=== PATIENT | female | born 1950 | race American Indian/Alaskan Native ===

== ENCOUNTER 2017-04-23 08:15 | Emergency (ER) | payer MEDICARE ==
[2017-04-23 08:30] VITALS: BMI 20.8
[2017-04-23 08:32] VITALS: BP 124/78; PULSE 80; RESP 18; TEMP 98.4; O2SAT 100
[2017-04-23] MEDS ORDERED: TDAP Vaccine 0.5 mL Syr IM ONE (08:38)
--- NOTE | 2017-04-23 08:59 | ED PDOC ---
Arrival/HPI - General Chief Complaint: Abnormal Skin Integrity Time Seen by Provider: 04/23/17 08:38 Historian: Patient - History of Present Illness Narrative History of Present Illness (Text): 04/23/17 08:35 A 66 year old female, whose past medical history includes acute myocardial infarction, ventricular fibrillation, and URI, presents to the emergency department after an accident while preparing her thanksgiving turkey prior to arrival. The patient states she was cutting her turkey when the knife slipped and punctured her in her left forearm. The patient states it immediately puffed up and she applied pressure to the area to stop the bleeding. She admits her last tetanus shot was over 20 years ago. PMD: Dr. Min Time/Duration: Prior to Arrival Symptom Onset: Sudden Symptom Course: Improving Activities at Onset: Light Context: Home Past Medical History - Provider Review Nursing Documentation Reviewed: Yes - Infectious Disease Hx of Infectious Diseases: None - Tetanus Immunization Tetanus Immunization: Unknown - Reproductive Menopause: Yes - Past Medical History Past Medical History: No Previous - Cardiac Hx Cardiac Disorders: Yes Hx Pacemaker: No - Pulmonary Hx Respiratory Disorders: Yes Hx Bronchitis: Yes - Neurological Hx Paralysis: No - HEENT Hx HEENT Disorder: No - Renal Hx Renal Disorder: No (URINARY RETENTION POST CARD CATH WITH BLOODY URINES) - Endocrine/Metabolic Hx Endocrine Disorders: No - Hematological/Oncological Hx Blood Transfusions: No Hx Blood Transfusion Reaction: No - Integumentary Hx Dermatological Disorder: No - Musculoskeletal/Rheumatological Hx Musculoskeletal Disorders: Yes - Gastrointestinal Hx Gastrointestinal Disorders: Yes (CONSTIPATION) Hx Gastroesophageal Reflux: Yes - Genitourinary/Gynecological Hx Genitourinary Disorders: Yes (CYST REMOVED IN HER OVARY,MOLE REMOVED BREAST AREA) Hx Hematuria: Yes - Psychiatric Hx Emotional Abuse: No Hx Physical Abuse: No Hx Substance Use: No - Surgical History Hx Coronary Stent: Yes (x2) Other/Comment: cyst removal from right breast - Anesthesia Hx Anesthesia: Yes Hx Anesthesia Reactions: No Hx Malignant Hyperthermia: No - Suicidal Assessment Feels Threatened In Home Enviroment: No Family/Social History - Physician Review Nursing Documentation Reviewed: Yes Family/Social History: No Known Family HX Smoking Status: Never Smoked Hx Alcohol Use: No Hx Substance Use: No Hx Substance Use Treatment: No Allergies/Home Meds Allergies/Adverse Reactions: Allergies shellfish derived Allergy (Severe, Verified 04/23/17 08:46) ANAPHYLAXIS SEAFOOD Allergy (Severe, Uncoded 04/23/17 08:46) ANAPHYLAXIS PT STATES SHE CAN ONLY EAT TUNA Home Medications: Home Meds Medication Instructions Recorded Confirmed Aspirin [Aspirin EC] 81 mg PO QOTHERDAY 02/22/15 04/23/17 Atorvastatin Calcium [Lipitor] 40 mg PO DAILY 02/26/15 04/23/17 Linaclotide [Linzess] 145 mcg PO DAILY 05/23/15 04/23/17 Alprazolam [Xanax] 0.25 mg PO PRN PRN 12/21/15 04/23/17 Multivitamin/Iron/Folic Acid 1 tab PO DAILY 12/21/15 04/23/17 [Centrum] Review of Systems - Physician Review All systems were reviewed & negative as marked: Yes - Review of Systems Constitutional: absent: Fevers Skin: Laceration (stab wound due to cooking knife in left forearm) Neurological: absent: Dizziness Physical Exam Vital Signs Reviewed: Yes Vital Signs Temp Pulse Resp BP Pulse Ox 04/23/17 08:31 98.4 F 80 18 124/78 100 Temperature: Afebrile Blood Pressure: Normal Pulse: Regular Respiratory Rate: Normal Appearance: Positive for: Well-Appearing, Non-Toxic, Comfortable Pain Distress: None Mental Status: Positive for: Alert and Oriented X 3 - Systems Exam Head: Present: Atraumatic, Normocephalic Pupils: Present: PERRL Extroacular Muscles: Present: EOMI Conjunctiva: Present: Normal Mouth: Present: Moist Mucous Membranes Neck: Present: Normal Range of Motion Respiratory/Chest: Present: Clear to Auscultation, Good Air Exchange. No: Respiratory Distress, Accessory Muscle Use Cardiovascular: Present: Regular Rate and Rhythm, Normal S1, S2. No: Murmurs Abdomen: Present: Normal Bowel Sounds. No: Tenderness, Distention, Peritoneal Signs Back: Present: Normal Inspection Upper Extremity: Present: Normal Inspection. No: Cyanosis, Edema Lower Extremity: Present: Normal Inspection. No: Edema Neurological: Present: GCS=15, CN II-XII Intact, Speech Normal Skin: Present: Warm, Dry, Normal Color, Laceration (4 mm laceration to the left forearm; mild swelling; non tender; no erythema; no visual foreign body visualized; laceration is already healing and there is no indication for stitches). No: Rashes Psychiatric: Present: Alert, Oriented x 3, Normal Insight, Normal Concentration Medical Decision Making ED Course and Treatment: 04/23/17 08:40 Impression: A 67 year old female with laceration wound to left forearm Differential Diagnosis included but are not limited to: Puncture wound/ laceration Plan: -- Boostrix Vaccine -- Area was cleaned and irrigated by ERIN Matthews. Wound was already healing and approximation already ensued with healing. Great approximation achieved with 2 steri-strips. Patient will follow up with primary care doctor in 2-3days. I explained to her and her son to look out for redness, warmth, swelling, pus drainiage, fever or any other concerns then to return to the ED. - Medication Orders Current Medication Orders: Discontinued Medications Tetanus/Reduced Diphtheria/Acell Pertussis (Boostrix Vaccine Inj) 0.5 ml IM .ONCE ONE Stop: 04/23/17 08:39 Last Admin: 04/23/17 08:56 Dose: 0.5 ml - Scribe Statement Raquel Morelos Provider Scribe Attestation: All medical record entries made by the Scribe were at my direction and personally dictated by me. I have reviewed the chart and agree that the record accurately reflects my personal performance of the history, physical exam, medical decision making, and the department course for this patient. I have also personally directed, reviewed, and agree with the discharge instructions and disposition. Disposition/Present on Arrival - Present on Arrival Any Indicators Present on Arrival: No History of DVT/PE: No History of Uncontrolled Diabetes: No Urinary Catheter: No History of Decub. Ulcer: No History Surgical Site Infection Following: None - Disposition Have Diagnosis and Disposition been Completed?: Yes Diagnosis: Laceration, Puncture wound Disposition: HOME/ ROUTINE Disposition Time: 09:04 Patient Plan: Discharge Condition: IMPROVED Discharge Instructions (ExitCare): Laceration (ED), Puncture Wound (ED) Additional Instructions: Ms Sanchez, thank you for letting us take care of you today. Your provider was Dr. Mac. You were treated for Laceration, Puncture Wound. The emergency medical care you received today was directed at your acute symptoms. If you were prescribed any medication, please fill it and take as directed. It may take several days for your symptoms to resolve. Return to the Emergency Department if your symptoms worsen, do not improve, or if you have any other problems. Please contact your doctor or call one of the physicians/clinics you have been referred to that are listed on the Patient Visit Information form that is included in your discharge packet. Bring any paperwork you were given at discharge with you along with any medications you are taking to your follow up visit. Our treatment cannot replace ongoing medical care by a primary care provider (PCP) outside of the emergency department. Thank you for allowing the [facility] team to be part of your care today. If you had an X-Ray or CT scan: A Radiologist will review the ED reading if any change in treatment is needed we will contact you. If you had a blood, urine, or wound culture: It will take several days for the results, if any change in treatment is needed we will contact you. If you had an STI test: It will take 48 hours for the results. Please call after 1 week if you have not heard back. Referrals: Dion Min, DO [Primary Care Provider] - Follow up with primary Forms: [employer] ([place])
== END 2017-04-23 09:04 | disposition home or self-care (01) ==
LOC: ED 08:15
DX: S51.802A Unspecified open wound of left forearm, initial encounter (principal); S51.832A Puncture wound without foreign body of left forearm, initial encounter; W26.0XXA Contact with knife, initial encounter; Y93.G1 Activity, food preparation and clean up; I25.2 Old myocardial infarction; Z23 Encounter for immunization

== ENCOUNTER 2017-08-08 14:39 | Emergency (ER) | payer MEDICARE ==
[2017-08-08 14:39] VITALS: BMI 20.8
[2017-08-08 14:55] VITALS: RESP 18; TEMP 98.4
--- NOTE | 2017-08-08 15:27 | ED PDOC ---
Arrival/HPI - General Chief Complaint: Cough, Cold, Congestion Time Seen by Provider: 08/08/17 14:43 Historian: Patient - History of Present Illness Narrative History of Present Illness (Text): 08/08/17 15:23 65 year old female, Jayla Sanchez, whose past medical history includes hypertension, Bronchitis, DVT, MS, ME, and Cardiac Stent x2, presents to the emergency department complaining of cough, nasal congestion, chills x 1 week. Patient denies cp, abdominal pain, lara, dizziness, urinary symptoms, recent travel, leg swelling, calf pain, recent surgical procedure, or abnormal gait. Time/Duration: Other (see hpi) Context: Home Past Medical History - Provider Review Nursing Documentation Reviewed: Yes - Infectious Disease Hx of Infectious Diseases: None - Tetanus Immunization Tetanus Immunization: Unknown - Reproductive Menopause: Yes - Past Medical History Past Medical History: No Previous - Cardiac Hx ME: Yes - Pulmonary Hx Respiratory Disorders: Yes Hx Bronchitis: Yes - Neurological Hx Paralysis: No - HEENT Hx HEENT Disorder: No - Renal Hx Renal Disorder: No (URINARY RETENTION POST CARD CATH WITH BLOODY URINES) - Endocrine/Metabolic Hx Endocrine Disorders: No - Hematological/Oncological Hx Blood Transfusions: No Hx Blood Transfusion Reaction: No Other/Comment: MS - Integumentary Hx Dermatological Disorder: No - Musculoskeletal/Rheumatological Hx Musculoskeletal Disorders: Yes - Gastrointestinal Hx Gastrointestinal Disorders: Yes (CONSTIPATION) Hx Gastroesophageal Reflux: Yes - Genitourinary/Gynecological Hx Genitourinary Disorders: Yes (CYST REMOVED IN HER OVARY,MOLE REMOVED BREAST AREA) Hx Hematuria: Yes - Psychiatric Hx Emotional Abuse: No Hx Physical Abuse: No Hx Substance Use: No - Surgical History Hx Coronary Stent: Yes (x2) Other/Comment: cyst removal from right breast. Right foot Sx - Anesthesia Hx Anesthesia: Yes Hx Anesthesia Reactions: No Hx Malignant Hyperthermia: No - Suicidal Assessment Feels Threatened In Home Enviroment: No Family/Social History - Physician Review Nursing Documentation Reviewed: Yes Family/Social History: Other (noncontributory) Smoking Status: Never Smoked Hx Alcohol Use: No Hx Substance Use: No Hx Substance Use Treatment: No Allergies/Home Meds Allergies/Adverse Reactions: Allergies shellfish derived Allergy (Severe, Verified 08/08/17 14:55) ANAPHYLAXIS SEAFOOD Allergy (Severe, Uncoded 08/08/17 14:55) ANAPHYLAXIS PT STATES SHE CAN ONLY EAT TUNA Home Medications: Home Meds Medication Instructions Recorded Confirmed Aspirin [Aspirin EC] 81 mg PO QOTHERDAY 02/22/15 08/08/17 Atorvastatin Calcium [Lipitor] 40 mg PO DAILY 02/26/15 08/08/17 Linaclotide [Linzess] 145 mcg PO DAILY 05/23/15 08/08/17 Alprazolam [Xanax] 0.25 mg PO PRN PRN 12/21/15 08/08/17 Multivitamin/Iron/Folic Acid 1 tab PO DAILY 12/21/15 08/08/17 [Centrum] Esomeprazole Magnesium [Nexium] 40 mg PO DAILY 08/08/17 08/08/17 Review of Systems - Review of Systems Constitutional: Normal. absent: Fatigue, Weight Change, Fevers, Night Sweats Eyes: Normal ENT: Normal Respiratory: Cough. absent: SOB, Sputum, Wheezing Cardiovascular: Normal. absent: Chest Pain, Palpitations, Edema, Calf Pain, KIM , Orthopnea, Syncope Gastrointestinal: Normal. absent: Abdominal Pain, Nausea, Vomiting Genitourinary Female: Normal. absent: Dysuria, Frequency, Hematuria Musculoskeletal: Normal. absent: Neck Pain Skin: Normal. absent: Rash Neurological: Normal. absent: Headache, Dizziness, Focal Weakness, Gait Changes , Speech Changes, Facial Droop, Disequilibrium, Seizure Endocrine: Normal Hemo/Lymphatic: Normal Psychiatric: Normal Physical Exam Vital Signs Temp Pulse Resp BP Pulse Ox 08/08/17 14:51 98.4 F 77 18 107/74 98 Temperature: Afebrile Blood Pressure: Normal Pulse: Regular Respiratory Rate: Normal Appearance: Positive for: Well-Appearing, Non-Toxic, Comfortable Pain Distress: None Mental Status: Positive for: Alert and Oriented X 3 - Systems Exam Head: Present: Atraumatic, Normocephalic Pupils: Present: PERRL Extroacular Muscles: Present: EOMI Conjunctiva: Present: Normal Mouth: Present: Moist Mucous Membranes Neck: Present: Normal Range of Motion Respiratory/Chest: Present: Clear to Auscultation, Good Air Exchange. No: Respiratory Distress, Accessory Muscle Use, Wheezes, Decreased Breath Sounds, Rales, Retracting, Rhonchi Cardiovascular: Present: Regular Rate and Rhythm, Normal S1, S2. No: Murmurs Abdomen: Present: Normal Bowel Sounds. No: Tenderness, Distention, Peritoneal Signs Back: Present: Normal Inspection. No: CVA Tenderness Upper Extremity: Present: Normal Inspection, Normal ROM. No: Cyanosis, Edema Lower Extremity: Present: Normal Inspection, Normal ROM. No: Edema Neurological: Present: GCS=15, CN II-XII Intact, Speech Normal Skin: Present: Warm, Dry, Normal Color. No: Rashes Psychiatric: Present: Alert, Oriented x 3, Normal Insight, Normal Concentration Medical Decision Making ED Course and Treatment: 08/08/17 17:01 Re-evaluation. Patient feels better. Discussed results and plan with patient who expresses understanding. All questions answered and there is agreement with the plan to discharge home with instructions. Patient stable for discharge. Return if symptoms persist or worsen. Re-evaluation Time: 17:01 Reassessment Condition: Re-examined, Improved - RAD Interpretation Narrative RAD Interpretations (Text): 08/08/17 17:01 CXR: NAD Radiology Orders: 08/08/17 15:22 CHEST TWO VIEWS (PA/LAT) [RAD] Stat - EKG Interpretation Interpreted by ED Physician: Yes (NSR @ [address] changes) Type: 12 lead EKG Comparison: Similar to previous EKG - Medication Orders Current Medication Orders: Discontinued Medications Levofloxacin (Levaquin) 500 mg PO STAT STA PRN Reason: Protocol Stop: 08/08/17 16:43 Promethazine HCl (Phenergan Syrup) 6.25 mg PO STAT STA Stop: 08/08/17 16:44 Disposition/Present on Arrival - Present on Arrival Any Indicators Present on Arrival: No History of DVT/PE: No History of Uncontrolled Diabetes: No Urinary Catheter: No History of Decub. Ulcer: No History Surgical Site Infection Following: None - Disposition Have Diagnosis and Disposition been Completed?: Yes Diagnosis: Bronchitis Disposition: HOME/ ROUTINE Disposition Time: 17:02 Patient Plan: Discharge Patient Problems: Current Active Problems Problem Status Onset Bronchitis Acute Condition: GOOD Discharge Instructions (ExitCare): Acute Bronchitis Additional Instructions: Call private doctor for follow up visit in 1-2 days. Take medication as instructed. Return to emergency if symptoms worsen, chest pain, or shortness of breath Do not drive or operate machinery for at least 10 hours if you take cough medication. It could make you feel drowsy. Prescriptions: Levofloxacin [Levaquin] 500 mg PO DAILY #6 tablet Promethazine [Phenergan Syrup] 6.25 mg PO Q4H PRN #120 ml PRN Reason: Cough And Congestion Referrals: Dion Min DO [Primary Care Provider] - Follow up with primary Forms: [employer] ([place])
--- NOTE | 2017-08-08 15:49 | RAD ---
HISTORY: cough COMPARISON: 10/07/2016 TECHNIQUE: Chest PA and lateral FINDINGS: LUNGS: No active pulmonary disease. PLEURA: No significant pleural effusion identified. No pneumothorax apparent. CARDIOVASCULAR: Normal. OSSEOUS STRUCTURES: No significant abnormalities. Stable thoracolumbar scoliosis VISUALIZED UPPER ABDOMEN: Normal. OTHER FINDINGS: None. IMPRESSION: No active disease. No significant interval change compared to the prior examination(s). Concordant results with the preliminary interpretation rendered by the emergency department physician procedure.
[2017-08-08] MEDS ORDERED: levoFLOXacin 500 MG TAB PO STA (16:42)
[2017-08-08] MEDS ORDERED: Promethazine 6.25 MG/5 ML CUP PO STA (16:43)
[2017-08-08 17:28] VITALS: BP 110/69; PULSE 76; O2SAT 100
--- NOTE | 2017-08-09 23:08 | CARD ---
APPROVED REPORT EKG Measurement Heart [id number] <Conclusion> Normal sinus rhythm Normal ECG
== END 2017-08-08 17:30 | disposition home or self-care (01) ==
LOC: ED 14:39
DX: J20.9 Acute bronchitis, unspecified (principal); I10 Essential (primary) hypertension

== ENCOUNTER 2017-10-15 12:59 | Emergency (ER) | payer MEDICARE, OTHER ==
[2017-10-15 13:00] VITALS: BMI 20.1
[2017-10-15 13:30] VITALS: RESP 17
--- NOTE | 2017-10-15 13:42 | ED PDOC ---
Arrival/HPI - General Time Seen by Provider: 10/15/17 13:20 Historian: Patient - History of Present Illness Narrative History of Present Illness (Text): 10/15/17 13:39 67yo female with PMHx of hypercholestrol, GERD, CAD with stents , shingles who present with pain to the area where she had shingles last year. Pain is localized to her right mid back. she describes pain as burning. States pain started 2days ago. Denies visible rash, any other complaint. Past Medical History - Provider Review Nursing Documentation Reviewed: Yes - Infectious Disease Hx of Infectious Diseases: None - Tetanus Immunization Tetanus Immunization: Unknown - Past Medical History Past Medical History: No Previous - Cardiac Hx AL: Yes - Pulmonary Hx Respiratory Disorders: Yes Hx Bronchitis: Yes - Neurological Hx Paralysis: No - HEENT Hx HEENT Disorder: No - Renal Hx Renal Disorder: No (URINARY RETENTION POST CARD CATH WITH BLOODY URINES) - Endocrine/Metabolic Hx Endocrine Disorders: No - Hematological/Oncological Other/Comment: MS - Integumentary Hx Dermatological Disorder: No - Musculoskeletal/Rheumatological Hx Musculoskeletal Disorders: Yes - Gastrointestinal Hx Gastrointestinal Disorders: Yes (CONSTIPATION) Hx Gastroesophageal Reflux: Yes - Genitourinary/Gynecological Hx Genitourinary Disorders: Yes (CYST REMOVED IN HER OVARY,MOLE REMOVED BREAST AREA) Hx Hematuria: Yes - Psychiatric Hx Emotional Abuse: No Hx Physical Abuse: No Hx Substance Use: No - Surgical History Hx Cardiac Catheterization: Yes (stents x2) - Anesthesia Hx Anesthesia: Yes Hx Anesthesia Reactions: No Hx Malignant Hyperthermia: No - Suicidal Assessment Feels Threatened In Home Enviroment: No Family/Social History - Physician Review Nursing Documentation Reviewed: Yes Family/Social History: Unknown Family HX Smoking Status: Never Smoked Hx Alcohol Use: No Hx Substance Use: No Hx Substance Use Treatment: No Allergies/Home Meds Allergies/Adverse Reactions: Allergies shellfish derived Allergy (Severe, Verified 10/15/17 13:28) ANAPHYLAXIS SEAFOOD Allergy (Severe, Uncoded 10/15/17 13:28) ANAPHYLAXIS PT STATES SHE CAN ONLY EAT TUNA Home Medications: Home Meds Medication Instructions Recorded Confirmed Aspirin [Aspirin EC] 81 mg PO DAILY 02/22/15 10/05/17 Atorvastatin Calcium [Lipitor] 20 mg PO DAILY 02/26/15 10/05/17 Linaclotide [Linzess] 145 mcg PO DAILY 05/23/15 10/05/17 Alprazolam [Xanax] 0.25 mg PO PRN PRN 12/21/15 10/05/17 Esomeprazole Magnesium [Nexium] 40 mg PO DAILY 08/08/17 10/05/17 Review of Systems - Physician Review All systems were reviewed & negative as marked: Yes - Review of Systems Constitutional: Normal Eyes: Normal ENT: Normal Respiratory: Normal Cardiovascular: Normal Gastrointestinal: Normal Genitourinary Female: Normal Musculoskeletal: Normal Skin: Other (Pain from rash to right upper back) Neurological: Normal Endocrine: Normal Hemo/Lymphatic: Normal Psychiatric: Normal Physical Exam Vital Signs Reviewed: Yes Vital Signs Pulse Resp BP Pulse Ox 10/15/17 13:29 80 17 120/72 98 Temperature: Afebrile Blood Pressure: Normal Pulse: Regular Respiratory Rate: Normal Appearance: Positive for: Well-Appearing, Non-Toxic, Comfortable Pain Distress: None Mental Status: Positive for: Alert and Oriented X 3 - Systems Exam Head: Present: Atraumatic, Normocephalic Pupils: Present: PERRL Extroacular Muscles: Present: EOMI Conjunctiva: Present: Normal Mouth: Present: Moist Mucous Membranes Neck: Present: Normal Range of Motion Respiratory/Chest: Present: Clear to Auscultation, Good Air Exchange. No: Respiratory Distress, Accessory Muscle Use Cardiovascular: Present: Regular Rate and Rhythm, Normal S1, S2. No: Murmurs Abdomen: No: Tenderness, Distention, Peritoneal Signs Back: Present: Normal Inspection Upper Extremity: Present: Normal Inspection. No: Cyanosis, Edema Lower Extremity: Present: Normal Inspection. No: Edema Neurological: Present: GCS=15, CN II-XII Intact, Speech Normal Skin: Present: Warm, Dry, Normal Color, Other (Hyperpigmented patches noted to mid right back where pt's pain is ). No: Rashes Psychiatric: Present: Alert, Oriented x 3, Normal Insight, Normal Concentration Disposition/Present on Arrival - Present on Arrival Any Indicators Present on Arrival: No History of DVT/PE: No History of Uncontrolled Diabetes: No Urinary Catheter: No History Surgical Site Infection Following: None - Disposition Have Diagnosis and Disposition been Completed?: Yes Diagnosis: Post herpetic neuralgia Disposition: HOME/ ROUTINE Disposition Time: 13:45 Patient Plan: Discharge Condition: STABLE Discharge Instructions (ExitCare): [place] (DC) Additional Instructions: Follow up with your Doctor Return to ED for any new or worsening symptoms Prescriptions: Pregabalin [Lyrica] 75 mg PO TID #12 cap [place] [facility] [place] - Follow up with primary
[2017-10-15 14:05] VITALS: BP 121/80; PULSE 78; O2SAT 99
== END 2017-10-15 14:15 | disposition home or self-care (01) ==
LOC: ED 12:59
DX: B02.29 Other postherpetic nervous system involvement (principal)

== ENCOUNTER 2018-06-02 13:38 | Outpatient (CLI) | payer MEDICARE | END 2018-06-02 13:39 | disposition home or self-care (01) | LOC: RAD 13:38 | DX: Z12.31 Encounter for screening mammogram for malignant neoplasm of breast (principal) ==

== ENCOUNTER 2018-06-22 13:11 | Outpatient (CLI) | payer MEDICARE | END 2018-06-22 13:12 | disposition home or self-care (01) | LOC: LAB 13:11 ==

== ENCOUNTER 2018-09-01 11:49 | Inpatient (IN) | payer MEDICARE, OTHER ==
--- NOTE | 2018-09-01 12:10 | ED PDOC ---
Arrival/HPI - General Chief Complaint: Cough, Cold, Congestion Time Seen by Provider: 09/01/18 11:55 Historian: Patient - History of Present Illness Narrative History of Present Illness (Text): 09/01/18 12:27 68 year old female, whose past medical history includes hypertension, bronchitis, DVT, MS, [place], and Cardiac Stent x2, presents to the ED for cough, congestion, and shortness of breath since 3 days ago. Patient reports associated chest pain, subjective fever, stiff neck, and chills. Patient reports PO intake of Tylenol yesterday, which temporarily improved symptoms. Patient denies any headache, dizziness, abdominal pain, nausea, vomiting, diarrhea, back pain, urinary/bowel changes, or any other complaints. PMD: Dr. Min. Time/Duration: < week Symptom Onset: Gradual Symptom Course: Unchanged Activities at Onset: Light Context: Home Past Medical History - Provider Review Nursing Documentation Reviewed: Yes - Infectious Disease Hx of Infectious Diseases: None - Tetanus Immunization Tetanus Immunization: Unknown - Reproductive Menopause: Yes - Past Medical History Past Medical History: No Previous - Cardiac Hx SC: Yes Other/Comment: cardiac stent x2 - Pulmonary Hx Respiratory Disorders: Yes Hx Bronchitis: Yes - Neurological Hx Paralysis: No - HEENT Hx HEENT Disorder: No - Renal Hx Renal Disorder: No (URINARY RETENTION POST CARD CATH WITH BLOODY URINES) - Endocrine/Metabolic Hx Endocrine Disorders: No - Hematological/Oncological Other/Comment: MS - Integumentary Hx Dermatological Disorder: No - Musculoskeletal/Rheumatological Hx Musculoskeletal Disorders: Yes - Gastrointestinal Hx Gastrointestinal Disorders: Yes (CONSTIPATION) Hx Gastroesophageal Reflux: Yes - Genitourinary/Gynecological Hx Genitourinary Disorders: Yes (CYST REMOVED IN HER OVARY,MOLE REMOVED BREAST AREA) Hx Hematuria: Yes - Psychiatric Hx Emotional Abuse: No Hx Physical Abuse: No Hx Substance Use: No - Surgical History Hx Cardiac Catheterization: Yes (stents x2) - Anesthesia Hx Anesthesia: Yes Hx Anesthesia Reactions: No Hx Malignant Hyperthermia: No - Suicidal Assessment Feels Threatened In Home Enviroment: No Family/Social History - Physician Review Nursing Documentation Reviewed: Yes Family/Social History: Unknown Family HX Smoking Status: Never Smoked Hx Alcohol Use: No Hx Substance Use: No Hx Substance Use Treatment: No Allergies/Home Meds Allergies/Adverse Reactions: Allergies shellfish derived Allergy (Severe, Verified 09/01/18 17:06) ANAPHYLAXIS SEAFOOD Allergy (Severe, Uncoded 09/01/18 17:06) ANAPHYLAXIS PT STATES SHE CAN ONLY EAT TUNA Home Medications: Home Meds Medication Instructions Recorded Confirmed Aspirin [Aspirin EC] 81 mg PO DAILY 02/22/15 09/01/18 Atorvastatin Calcium [Lipitor] 20 mg PO DAILY 02/26/15 09/01/18 Linaclotide [Linzess] 145 mcg PO DAILY 05/23/15 09/01/18 Alprazolam [Xanax] 0.25 mg PO PRN PRN 12/21/15 09/01/18 Esomeprazole Magnesium [Nexium] 40 mg PO DAILY 08/08/17 09/01/18 Review of Systems - Physician Review All systems were reviewed & negative as marked: Yes - Review of Systems Constitutional: Fevers Eyes: Normal ENT: Normal Respiratory: SOB, Cough. absent: Wheezing Cardiovascular: Chest Pain Gastrointestinal: absent: Abdominal Pain, Diarrhea, Nausea, Vomiting Musculoskeletal: Other (Neck Stiffness) Skin: Normal Neurological: absent: Headache, Dizziness Endocrine: absent: Diaphoresis Physical Exam Vital Signs Reviewed: Yes Temperature: Febrile Blood Pressure: Normal Pulse: Tachycardic Respiratory Rate: Normal Appearance: Positive for: Well-Appearing, Non-Toxic, Comfortable Pain Distress: Mild Mental Status: Positive for: Alert and Oriented X 3 - Systems Exam Head: Present: Atraumatic, Normocephalic Pupils: Present: PERRL Extroacular Muscles: Present: EOMI Conjunctiva: Present: Normal Neck: Present: Normal Range of Motion. No: Meningeal Signs, MIDLINE TENDERNESS, Paraspinal Tenderness Respiratory/Chest: Present: Decreased Breath Sounds. No: Wheezes Cardiovascular: Present: Normal S1, S2, Tachycardic. No: Murmurs Abdomen: No: Tenderness, Distention, Peritoneal Signs Upper Extremity: Present: Normal Inspection. No: Edema Lower Extremity: Present: Normal Inspection. No: Edema Neurological: Present: GCS=15, Speech Normal Skin: Present: Warm, Dry, Normal Color. No: Rashes Psychiatric: Present: Alert, Oriented x 3, Normal Insight, Normal Concentration Medical Decision Making ED Course and Treatment: 09/01/18 12:08 Impression: 68 year old female who presents to the ED with cough, congestion and shortness of breath. Plan: -- VBG -- EKG -- Labs -- Chest X-Ray -- Tylenol -- Duoneb -- Blood Culture -- Influenza A B -- Reassess and disposition Prior Visits: Notes and results from previous visits were reviewed. Progress Notes: EKG: Time Interpreted: 12:05 Rate: 119 BPM Rhythm: Sinus Tachycardia Interpretation: No ST-segment elevations or depressions, no T-wave inversions, normal intervals. 09/01/18 14:07 Chest X-Ray: IMPRESSION: Minimal interstitial infiltrates are seen in the right lung. 09/01/18 14:49 Upon reassessment, patient reports some improvement in symptoms after breathing treatment. Lung sounds have minimally improved. Plan neb #2 and reassess. Results of w/u d/w patient. Antiobiotics ordered. Patient now mentions that was evaluated by her pcp 3 days ago and started on Zithromax. 09/01/18 15:23 Reassessment: Case discussed with Dr. Min, who is aware of the patient's condition and agrees with ED's plan to admit patient for outpatient treatment failure under his service. Requests consult with Dr. Diaz and Dr. Loja. Patient agreeable w/POC. - EKG Interpretation Interpreted by ED Physician: Yes Type: 12 lead EKG - Scribe Statement The provider has reviewed the documentation as recorded by the Markos Gray training under [facility] Provider Scribe Attestation: All medical record entries made by the Scribe were at my direction and personally dictated by me. I have reviewed the chart and agree that the record accurately reflects my personal performance of the history, physical exam, medical decision making, and the department course for this patient. I have also personally directed, reviewed, and agree with the discharge instructions and disposition. Disposition/Present on Arrival - Present on Arrival Any Indicators Present on Arrival: No History of DVT/PE: No History of Uncontrolled Diabetes: No Urinary Catheter: No History of Decub. Ulcer: No History Surgical Site Infection Following: None - Disposition Have Diagnosis and Disposition been Completed?: Yes Diagnosis: Pneumonia Disposition: HOSPITALIZED Disposition Time: 13:20 Patient Plan: Admission Condition: STABLE
[2018-09-01] MEDS ORDERED: Albuterol-Ipratrop 3 mg / 0.5 (3 ml) UD IH STA ×2 (12:34→14:47)
[2018-09-01 12:49] LABS: VENOUS BLOOD GAS BASE EXCESS 3.6 mmol/L (0.0-2.0); VENOUS BLOOD GAS PO2 61 mm/Hg (30-55)
[2018-09-01 12:55] LABS: BASO # 0.02 K/mm3 (0.0-2.0); BASO % 0.3 % (0.0-3.0); EOS % 0.1 % (1.5-5.0); HEMOGLOBIN 10.6 g/dL (12.0-16.0); LYMPH % 13.1 % (22.0-35.0); MEAN CELL VOLUME 87.7 fl (80.0-105.0); MEAN CORPUSCULAR HEMOGLOBIN 28.3 pg (25.0-35.0); MEAN CORPUSCULAR HGB CONC 32.2 g/dl (31.0-37.0); MEAN PLATELET VOLUME 10.7 fl (7.0-11.0); MONO # 0.4 (0.1-0.6); MONO % 5.1 % (1.0-6.0); RBC 3.75 10^6/uL (3.5-6.1); RED CELL DISTRIBUTION WIDTH 14.6 % (11.5-14.5); WHITE BLOOD COUNT 7.7 10^3/uL (4.5-11.0)
[2018-09-01 13:02] LABS: ALBUMIN 3.8 g/dL (3.0-4.8); ALT/SGPT 91 U/L (7-56); AST/SGOT 118 U/L (14-36); BLOOD UREA NITROGEN 10 mg/dL (7-21); CALCIUM 9.5 mg/dL (8.4-10.5); GFR NON-AFRICAN AMERICAN > 60
[2018-09-01] MEDS ORDERED: Sodium Chloride 0.9% 1,000 ML IV STA (13:02)
[2018-09-01 13:12] LABS: TROPONIN I < 0.01 ng/mL
--- NOTE | 2018-09-01 13:52 | RAD ---
Date of service: 09/01/2018 HISTORY: cough/fever COMPARISON: 08/08/2017 TECHNIQUE: Chest PA and lateral views FINDINGS: LUNGS: Minimal interstitial infiltrates are seen in the right lung. PLEURA: No significant pleural effusion identified. No pneumothorax apparent. CARDIOVASCULAR: No aortic atherosclerotic calcification present. Normal cardiac size. No pulmonary vascular congestion. OSSEOUS STRUCTURES: No significant abnormalities. VISUALIZED UPPER ABDOMEN: Normal. OTHER FINDINGS: None. IMPRESSION: Minimal interstitial infiltrates are seen in the right lung.
[2018-09-01] MEDS ORDERED: cefTRIAXone 1 gm 1 GM/100 ML BAG IVPB STA (14:00)
[2018-09-01] MEDS ORDERED: Potassium Chloride 20 mEq ER Tab PO STA (18:16)
[2018-09-01] MEDS ORDERED: Vancomycin 1gm in NS 250ml 1 GM/250 ML BAG IVPB SCH (18:45)
[2018-09-01 20:02] VITALS: BMI 20.5
[2018-09-01] MEDS ORDERED: Pneumococcal 23-Valent Vaccine IM ONE (20:02)
[2018-09-01] MEDS ORDERED: Influenza Vaccine 60 mcg/0.5 mL SYR (4YR UP) IM ONE (20:02)
--- NOTE | 2018-09-01 21:04 | HP ---
DATE OF EXAM: 09/01/2018 HISTORY OF PRESENT ILLNESS: I saw Jayla on Thursday, three days ago with a very bad bronchitis in the office. I started her on a Z-Mushtaq. She apparently today called me this morning with worsening of her cough and bringing up more congestion and she did not feel well, got short of breath. She came to the emergency room where she was having a pneumonia. She was on a Z-Mushtaq. She is a 68-year-old female with a past medical history of bronchitis, DVT, [place], [place], cardiac stents x2 with cough, shortness of breath and congestion on Z-Mushtaq. It got worse, short of breath, more coughing, more mucus and came to the ER and was found to have a pneumonia. PAST MEDICAL HISTORY: She had urinary retention before. She has multiple sclerosis, constipation, gastroesophageal reflux disease. She had a cyst removed in her ovary, a mole removed in her breast. She has had hematuria in the past, cardiac stents x2. FAMILY HISTORY: Unknown family history. SOCIAL HISTORY: Nonsmoker. No drinking. No drugs. ALLERGIES: TO SHELLFISH AND SEAFOOD. MEDICATIONS: She is on aspirin, Lipitor, Linzess for the constipation, Lipitor for her high cholesterol, Xanax for anxiety, Nexium for gastroesophageal reflux disease. REVIEW OF SYSTEMS: She is having fevers. No acute vision or hearing changes. No sore throat. She has shortness of breath. She is coughing. She is wheezing. She is congested that is changing, sometime she cannot catch her breath, sometimes it causes the phlegm when she can breathe a little bit better. She is having chest discomfort. Heart rate is fast, she tells me of her palpitations. No nausea, vomiting, constipation or diarrhea. No abdominal pain. Neck is a little bit stiff. Skin from what she knows is intact. No headache or dizziness. A little bit hot, no sweating. PHYSICAL EXAMINATION GENERAL: She is febrile, uncomfortable, short of breath, well appearing. Alert and oriented x3. VITAL SIGNS: She had a 100.1 temperature in the ER, 114 pulse, 138/82 blood pressure, 18 respiratory rate, and 98% O2 sat. HEENT: Head is atraumatic, normocephalic. Extraocular muscles are intact. Pupils equally react to light and accommodation. Throat is moist. NECK: Supple. HEART: Regular rate and rhythm. Normal S1, S2. No meningeal signs. LUNGS: Decreased breath sounds. Congestion bilaterally, much worse than she was 2 days ago. Occasional wheeze if she coughs real hard. ABDOMEN: Soft, nontender. Positive bowel sounds. No guarding, no rebound or CVA tenderness. EXTREMITIES: No edema. NEUROLOGIC: GCS is 15. Cranial nerves II through XII grossly intact. Alert and oriented x3. SKIN: Warm and dry. Good turgor. No rashes or ulcers appreciated. LYMPHATICS: Thyroid midline. No palpable appreciable lymphadenopathy. LABORATORY DATA: She had multiple tests done. EKG shows no ST-segment elevations or depressions, sinus tachycardia. Chest x-ray showed minimal interstitial infiltrates are seen in the right lung. She has 137 sodium, potassium 3.5, I will replace the potassium. BUN 10, creatinine 0.6, GFR is greater than 60, sugar is 123, calcium is 9.5, magnesium 2.1, total bili is 0.4. AST is 118, ALT is 91, alk phos 114. Lactate hydrogenase is 679. Total creatine kinase 64. Troponin I is less than 0.01. Total protein is 7.4, albumin is 3.8. Negative for the flu. Lactate is high at 2.3. White count is 7.7, hemoglobin 10.6, hematocrit 32.9, platelets 156. IMPRESSION AND PLAN: She will have a consult with Pulmonary and Infectious Disease. She will be on Zosyn. They gave her Rocephin and Zithromax in the ER. She failed outpatient Zithromax. She will be on Xopenex and we will watch her very closely. Check her labs tomorrow. She has got pneumonia, failed outpatient therapy. Dion Min DO
[2018-09-01] MEDS: Vancomycin 1gm in NS 250ml 1 GM/250 ML BAG IVPB SCH (21:21)
[2018-09-01] MEDS: Cefepime 1gm in NS 100ml 1 GM/100 ML BAG IVPB SCH (21:22)
[2018-09-01] MEDS ORDERED: Piperacillin/Tazobact 3.375 gm 100 ML IVPB SCH (22:00)
--- NOTE | 2018-09-01 22:21 | CARD ---
APPROVED REPORT Date of service: 09/01/2018 EKG Measurement Heart [id number] <Conclusion> Sinus tachycardia Possible Left atrial enlargement Intraventricular conduction delay of RBBB type Borderline ECG
[2018-09-01] MEDS ORDERED: guaiFENesin-DM 600-30 mg ER Tab PO SCH (23:00)
[2018-09-01] MEDS: Levalbuterol 0.63 MG/3 ML Inhal Soln UD IH PRN (23:53)
[2018-09-02] MEDS: Cefepime 1gm in NS 100ml 1 GM/100 ML BAG IVPB SCH ×3 (06:28→22:07)
[2018-09-02] MEDS: Pantoprazole 40 mg EC Tab PO SCH (06:28)
[2018-09-02] MEDS: Levalbuterol 0.63 MG/3 ML Inhal Soln UD IH PRN (07:14)
[2018-09-02 07:47] LABS: HEMOGLOBIN 9.6 g/dL (12.0-16.0); MEAN CELL VOLUME 87.8 fl (80.0-105.0); MEAN CORPUSCULAR HGB CONC 31.9 g/dl (31.0-37.0); MEAN PLATELET VOLUME 10.9 fl (7.0-11.0); RBC 3.43 10^6/uL (3.5-6.1); RED CELL DISTRIBUTION WIDTH 14.5 % (11.5-14.5); WHITE BLOOD COUNT 8.2 10^3/uL (4.5-11.0)
[2018-09-02 07:55] LABS: TROPONIN I < 0.01 ng/mL
[2018-09-02 07:57] LABS: ALBUMIN 3.3 g/dL (3.0-4.8); ALT/SGPT 86 U/L (7-56); AST/SGOT 69 U/L (14-36); BLOOD UREA NITROGEN 8 mg/dL (7-21); GFR NON-AFRICAN AMERICAN > 60
[2018-09-02] MEDS: Vancomycin 1gm in NS 250ml 1 GM/250 ML BAG IVPB SCH ×2 (09:00→20:32)
[2018-09-02] MEDS: guaiFENesin-DM 600-30 mg ER Tab PO SCH ×2 (09:00→18:13)
[2018-09-02] MEDS: Non Formulary Medication (Linaclotide [Linzess] 145 MCG) PO SCH (09:03)
[2018-09-02] MEDS ORDERED: Albuterol-Ipratrop 3 mg / 0.5 (3 ml) UD IH PRN (09:06)
--- NOTE | 2018-09-02 09:48 | CON ---
DATE OF CONSULTATION: 09/02/2018 PULMONARY CONSULTATION REASON FOR PULMONARY CONSULTATION: Pneumonia. REFERRING PHYSICIAN FOR THIS PULMONARY CONSULTATION: Dr. Min. HISTORY OF PRESENT ILLNESS: The patient is a 68-year-old female, with past medical history significant for asthma when young, multiple sclerosis, coronary artery disease, myocardial infarction in the past, status post multiple cardiac stents, who presents to [facility] with a 3-day history of worsening dyspnea on exertion, cough, and sputum production. There is no history of shortness of breath at rest. There is no history of chest pain, coughing up of blood, or chest pain - brought on with deep respirations. The patient does state to having fevers at home. No history of chills or infectious exposure. No history of night sweats, weight loss, or appetite change prior to the above events. No history of calf pains. No history of syncope or diaphoresis. No history of recent travel or trauma. REVIEW OF SYSTEMS: No history of nausea, vomiting, or diarrhea. No acute urinary symptoms. No new neurologic complaints. Rest of the review of systems is negative. ALLERGIES: SHELL FISH AND SEAFOOD. SOCIAL HISTORY: Negative for tobacco, negative for alcohol. FAMILY HISTORY: No inheritable diseases. MEDICATIONS: Home medications include Nexium, Lipitor, aspirin, Xanax, and Linzess. PHYSICAL EXAMINATION: GENERAL: The patient appears comfortable at rest. She is not short of breath. VITAL SIGNS: Temperature is 99, pulse 94, respirations 18, blood pressure 131/74. Oxygen saturation on room air is 96%. HEENT: Normocephalic, atraumatic. NECK: No JVD. CARDIOVASCULAR: Positive S1, S2. No S3 gallop. LUNGS: Crackles noted at the right lower lobe. Minimal bilateral rhonchi. No wheezing. EXTREMITIES: No clubbing, cyanosis or edema. Calves are nontender to palpation. GASTROINTESTINAL: Abdomen is soft, nontender and nondistended. Bowel sounds are positive. SKIN: No acute rash. NEUROLOGIC: Exam is limited at the present time. PERTINENT LABORATORY DATA: Chest x-ray was done yesterday and reviewed. I also compared yesterday's film with the previous films. There are minimal interstitial infiltrates noted in the right lower lobe, and to a lesser extent the right upper lobe. CBC: White count 8.2K, hemoglobin 9.6, hematocrit 30.1, platelets of 155,000. Complete metabolic profile: Chloride 108, AST 69, ALT 86. Rest of the metabolic profile is within normal limits. IMPRESSION: 1. Right upper lobe, right lower lobe pneumonia. 2. Acute bronchitis. 3. Multiple sclerosis. 4. Coronary artery disease. PLAN: The patient presents to [facility] with a 3-day history of worsening pulmonary symptoms. In addition, she does state to fevers at home. I did review the chest x-ray as above. Findings are noted. [place] cultures have been ordered and will be analyzed when feasible. The patient has been started on antibiotic therapy - as per Infectious Disease. Input by Dr. Loja is noted. On physical exam, there is mild bronchospasm noted. However, there is no significant alveolar-arterial gradient. I will start the patient on DuoNeb treatments and inhaled steroids this morning. She did state that the nebulizer treatments she got in the emergency room made her feel much better. Procalcitonin level has been ordered. Urine antigen for Legionella has also been ordered. The patient does state to feeling better this morning and is clinically improved. Additional pulmonary intervention will be based on the clinical status of the patient. I will discuss the above with Dr. Min. Thank you very much for this pulmonary consultation. Simon Edouard MD [facility]
[2018-09-02] MEDS ORDERED: Pantoprazole 40 mg EC Tab PO SCH (10:00)
--- NOTE | 2018-09-02 10:28 | CP.PCM.PCO ---
Additional Comments - Additional Comments Additional Comments: 68 y.o. female w/ pmhx of HTN, bronchitis, DVT, MS, [place], and Cardiac Stent x2, presented to ED for cough, congestion, and shortness of breath. She was started on zpack by her PMD but her cough got worse and became short of breath. She is currently admitted for pneumonia. Procalcitonin is pending. On Cefepime, Doxy and Vanco per ID recs. Pt seen and examined at bedside and states that she is feeling better. Cough and SOB improved. Will continue to follow. Impressions Chest X-Ray 09/01/18 12:29 IMPRESSION: Minimal interstitial infiltrates are seen in the right lung.
--- NOTE | 2018-09-02 12:31 | PN ---
DATE: 09/02/2018 SUBJECTIVE: I saw her this morning sitting up in bed. She is still coughing. Still feels tight. She is bringing up some phlegm. The cough medicine Mucinex has helped her, so we will keep her on the Mucinex. She is on doxycycline, DuoNebs, Linzess, Lipitor, Maxipime, Mucinex, Protonix, Pulmicort, Tylenol, vancomycin, and Xanax. She failed outpatient therapy with Zithromax and got worse. PHYSICAL EXAMINATION: GENERAL: She is still not right, I know her look, and she is not ready yet. VITAL SIGNS: She has a 99 temperature, 94 pulse, 131/74 blood pressure, 18 respiratory rate, 96% O2 sat on room air. HEAD: Atraumatic, normocephalic. HEART: Regular rate. LUNGS: Still with congestion and she is coughing a lot. ABDOMEN: Soft. EXTREMITIES: No edema. LABORATORY DATA: She has a 8.2 white count, 9.6 hemoglobin, 30.1 hematocrit with 155 platelets. Lactate was 2.3 when she came in. Sodium 140, potassium 3.9, BUN 8, creatinine 0.6, GFR greater than 60, sugar is 92, calcium is 9, total bili is 0.3, AST is 69, ALT is 86, alk phos 111. These numbers are getting better. Troponin I is less than 0.01. She has a little bit of those chest pain. Total protein is 6.6. She is not really improving much since last night. She is about the same. Hopefully, in the next 24 hours or so, we will see improvement with the antibiotics. She is being seen by Infectious Disease and Pulmonary. She failed outpatient treatment for bronchitis with Zithromax and she is in the hospital with pneumonia. Dion Min DO
[2018-09-02 12:41] LABS: HEPATITIS B SURFACE AG Negative (NEGATIVE)
[2018-09-02 12:46] LABS: HEPATITIS B CORE AB NEGATIVE (NEGATIVE)
[2018-09-02 12:58] LABS: HEPATITIS C ANTIBODY NEGATIVE (NEGATIVE)
--- NOTE | 2018-09-02 13:21 | CP.PCM.CON ---
<Dedrick Holder - Last Filed: 09/02/18 13:17> History of Present Illness - History of Present Illness History of Present Illness: Dedrick Holedr D.O. PGY-3, Internal Medicine Resident, Infectious Disease Consultation Note 68 year old female with a PMH of hypertension, DVT, MS not on therapy for years, CAD s/p stent x2, who presented to [facility] for cough, congestion, and shortness of breath for 3 days ago. Infectious disease consultation was requested for pneumonia. Patient was seen and examined at bedside. Patient states that she went to see her PMD on Wednesday 08/30 for complaints of productive cough and was started on azithromycin. Patient states that she took it starting that same day but Friday 09/01 she began to have fevers overnight as high as 101.5F as well as night sweats so bad that she had to change her clothes and so she decided to present to the hospital. Patient at this time states that she feeling marginally better but she is still having some productive cough. Patient denies any sick contacts or recent travel. Patient denies being on therapy for MS for multiple years and follows with Dr. Bright. Denies smoking, EtOH or drug use. Denies any N/V/D/C/HERBERT/CP but has some mild SOB at times with the cough. Review of Systems - Review of Systems All systems: reviewed and no additional remarkable complaints except (as per HPI) Past Patient History - Infectious Disease Hx of Infectious Diseases: None - Tetanus Immunizations Tetanus Immunization: Unknown - Past Social History Smoking Status: Never Smoked - CARDIAC Hx Cardiac Disorders: Yes Hx Cardia Arrhythmia: Yes (AFIB) Hx Hypertension: Yes Other/Comment: cardiac stent x2 - PULMONARY Hx Respiratory Disorders: Yes Hx Bronchitis: Yes - NEUROLOGICAL Hx Neurological Disorder: Yes (MULTIPE SCHLEROSIS) - HEENT Hx HEENT Problems: Yes (L RETINAL DETACHMENT WITH SX.) Hx Cataracts: Yes (L WITH SURGERY) - RENAL Hx Chronic Kidney Disease: No (URINARY RETENTION POST CARD CATH WITH BLOODY URINES) - ENDOCRINE/METABOLIC Hx Endocrine Disorders: No - HEMATOLOGICAL/ONCOLOGICAL Hx Blood Disorders: Yes Hx Shingles: Yes Other/Comment: MS - INTEGUMENTARY Hx Dermatological Problems: No - MUSCULOSKELETAL/RHEUMATOLOGICAL Hx Musculoskeletal Disorders: Yes (VITAMIN D DEFICIENCY,) Hx Falls: No - GASTROINTESTINAL Hx Gastrointestinal Disorders: Yes (CONSTIPATION) - GENITOURINARY/GYNECOLOGICAL Hx Genitourinary Disorders: Yes (CYST REMOVED IN HER OVARY,MOLE REMOVED BREAST AREA) Hx Hematuria: Yes Other/Comment: C SECTION X 1. - PSYCHIATRIC Hx Psychophysiologic Disorder: Yes Hx Anxiety: Yes Hx Emotional Abuse: No Hx Physical Abuse: No Hx Substance Use: No - SURGICAL HISTORY Hx Surgeries: Yes (C SECTION X 1,CARD CATH WITH 2 STENTS.) Hx Cardiac Catheterization: Yes (stents x2) Hx Coronary Stent: Yes (X2) Other/Comment: cyst removal from right breast,MOLE REMOVED BREAST AREA.L CATARACT SX,L RETINAL DETACHEMENT SX. Right foot Sx - ANESTHESIA Hx Anesthesia: Yes Hx Anesthesia Reactions: No Hx Malignant Hyperthermia: No Meds Allergies/Adverse Reactions: Allergies Allergy/AdvReac Type Severity Reaction Status Date / Time shellfish derived Allergy Severe ANAPHYLAXIS Verified 09/01/18 17:06 SEAFOOD Allergy Severe ANAPHYLAXIS Uncoded 09/01/18 17:06 - Medications Medications: Current Medications Acetaminophen (Tylenol 325mg Tab) 650 mg PO Q6H PRN PRN Reason: Fever >100.4 F Albuterol/Ipratropium (Duoneb 3 Mg/0.5 Mg (3 Ml) Ud) 3 ml IH [id number] [facility] Albuterol/Ipratropium (Duoneb 3 Mg/0.5 Mg (3 Ml) Ud) 3 ml IH Q2H PRN PRN Reason: Shortness of Breath Alprazolam (Xanax) 0.25 mg PO TID PRN; Protocol PRN Reason: Anxiety Stop: 09/08/18 18:12 Aspirin (Ecotrin) 81 mg PO DAILY [facility] Last Admin: 09/02/18 09:00 Dose: 81 mg Atorvastatin Calcium (Lipitor) 20 mg PO DAILY [facility] Last Admin: 09/02/18 09:00 Dose: 20 mg Budesonide (Pulmicort Respules) 0.5 mg IH [id number] [facility] Doxycycline Hyclate (Doryx) 100 mg PO Q12 [facility]; Protocol Guaifenesin/Dextromethorphan (Mucinex-Dm 600-30 Mg) 1 tab PO BID [facility] Last Admin: 09/02/18 09:00 Dose: 1 tab Cefepime HCl (Maxipime 1gm) 1 gm in 100 mls @ 25 mls/hr IVPB Q8 [facility]; Protocol Stop: 09/10/18 22:01 Last Admin: 09/02/18 06:28 Dose: 25 mls/hr Vancomycin HCl (Vancomycin 1gm) 1 gm in 250 mls @ 167 mls/hr IVPB 799,1999 [facility]; Protocol Stop: 09/10/18 20:01 Last Admin: 09/02/18 09:00 Dose: 167 mls/hr Non-Formulary Medication (Linaclotide [Linzess]) 145 mcg PO DAILY [facility] Last Admin: 09/02/18 09:03 Dose: Not Given Pantoprazole Sodium (Protonix Ec Tab) 40 mg PO 599 [facility] Last Admin: 09/02/18 06:28 Dose: 40 mg Physical Exam - Constitutional Appears: Non-toxic, No Acute Distress - Head Exam Head Exam: ATRAUMATIC, NORMOCEPHALIC - Eye Exam Eye Exam: EOMI. absent: Scleral icterus - ENT Exam ENT Exam: Mucous Membranes Moist - Neck Exam Neck exam: Positive for: Normal Inspection - Respiratory Exam Respiratory Exam: Rhonchi. absent: Rales, Wheezes - Cardiovascular Exam Cardiovascular Exam: +S1, +S2. absent: Gallop, Rubs - GI/Abdominal Exam GI & Abdominal Exam: Normal Bowel Sounds, Soft. absent: Distended, Tenderness - Extremities Exam Extremities exam: Negative for: calf tenderness, pedal edema - Neurological Exam Neurological exam: Alert, Oriented x3 - Psychiatric Exam Psychiatric exam: Normal Affect, Normal Mood - Skin Skin Exam: Dry, Warm Results - Vital Signs Recent Vital Signs: Last Vital Signs Temp 98.3 F 09/02/18 12:00 Pulse 86 09/02/18 12:00 Resp 18 09/02/18 12:00 BP 126/76 09/02/18 12:00 Pulse Ox 96 09/02/18 06:00 - Labs Result Diagrams: 09/02/18 06:45 09/02/18 06:45 Labs: Laboratory Results - last 24 hr 09/01/18 09/01/18 09/02/18 19:00 19:00 06:45 WBC 8.2 RBC 3.43 L Hgb 9.6 L Hct 30.1 L MCV 87.8 MCH 28.0 MCHC 31.9 RDW 14.5 Plt Count 155 MPV 10.9 Sodium Potassium Chloride Carbon Dioxide Anion Gap BUN Creatinine Est GFR ( Amer) Est GFR (Non-Af Amer) Random Glucose Calcium Total Bilirubin AST ALT Alkaline Phosphatase Troponin I Total Protein Albumin Globulin Albumin/Globulin Ratio Hep Bs Antigen Negative Hep B Core IgM Ab Negative Hepatitis C Antibody Negative HIV 1&2 Ag/Ab, 4th Gen Nonreactive 09/02/18 06:45 WBC RBC Hgb Hct MCV MCH MCHC RDW Plt Count MPV Sodium 140 Potassium 3.9 Chloride 108 H Carbon Dioxide 25 Anion Gap 11 BUN 8 Creatinine 0.6 L Est GFR ( Amer) > 60 Est GFR (Non-Af Amer) > 60 Random Glucose 92 Calcium 9.0 Total Bilirubin 0.3 AST 69 H D ALT 86 H Alkaline Phosphatase 111 Troponin I < 0.01 Total Protein 6.6 Albumin 3.3 Globulin 3.3 Albumin/Globulin Ratio 1.0 L Hep Bs Antigen Hep B Core IgM Ab Hepatitis C Antibody HIV 1&2 Ag/Ab, 4th Gen Assessment & Plan - Assessment and Plan (Free Text) Assessment: 68 year old female with a PMH of hypertension, DVT, MS not on therapy for years, CAD s/p stent x2, who presented to [facility] for cough, congestion, and shortness of breath for 3 days ago. Infectious disease consultation was requested for ananth narayanan. Plan: Sepsis likely 2/2 HCAP MS GERD DVT HTN CAD s/p stent x2 Fever and tachycardia 2/4 SIRS Appears to have defervesced No leukocytosis Started empirically on doxy/cefe/vanc Procal ordered CXR reveals right upper and lower PNA Pulmonary Dr. Edouard's note reviewed and appreciated Blood cultures pending We will follow with you Patient was seen and examined and case to be discussed with attending physician Thank you for the pleasure of participating in the care of this interesting patient - Date & Time Date: 09/02/18 Time: 07:10 <Jermain Loja - Last Filed: 09/02/18 16:46> Meds - Medications Medications: Current Medications Acetaminophen (Tylenol 325mg Tab) 650 mg PO Q6H PRN PRN Reason: Fever >100.4 F Albuterol/Ipratropium (Duoneb 3 Mg/0.5 Mg (3 Ml) Ud) 3 ml IH [id number] [facility] Last Admin: 09/02/18 13:26 Dose: 3 ml Albuterol/Ipratropium (Duoneb 3 Mg/0.5 Mg (3 Ml) Ud) 3 ml IH Q2H PRN PRN Reason: Shortness of Breath Alprazolam (Xanax) 0.25 mg PO TID PRN; Protocol PRN Reason: Anxiety Stop: 09/08/18 18:12 Aspirin (Ecotrin) 81 mg PO DAILY [facility] Last Admin: 09/02/18 09:00 Dose: 81 mg Atorvastatin Calcium (Lipitor) 20 mg PO DAILY [facility] Last Admin: 09/02/18 09:00 Dose: 20 mg Budesonide (Pulmicort Respules) 0.5 mg IH [id number] [facility] Doxycycline Hyclate (Doryx) 100 mg PO Q12 [facility]; Protocol Guaifenesin/Dextromethorphan (Mucinex-Dm 600-30 Mg) 1 tab PO BID [facility] Last Admin: 09/02/18 09:00 Dose: 1 tab Cefepime HCl (Maxipime 1gm) 1 gm in 100 mls @ 25 mls/hr IVPB Q8 [facility]; Protocol Stop: 09/10/18 22:01 Last Admin: 09/02/18 13:28 Dose: 25 mls/hr Vancomycin HCl (Vancomycin 1gm) 1 gm in 250 mls @ 167 mls/hr IVPB 0800,2000 [facility]; Protocol Stop: 09/10/18 20:01 Last Admin: 09/02/18 09:00 Dose: 167 mls/hr Non-Formulary Medication (Linaclotide [Linzess]) 145 mcg PO DAILY [facility] Last Admin: 09/02/18 09:03 Dose: Not Given Pantoprazole Sodium (Protonix Ec Tab) 40 mg PO 0600 [facility] Last Admin: 09/02/18 06:28 Dose: 40 mg Results - Vital Signs Recent Vital Signs: Last Vital Signs Temp 98.3 F 09/02/18 12:00 Pulse 99 H 09/02/18 14:00 Resp 18 09/02/18 12:00 BP 126/76 09/02/18 12:00 Pulse Ox 96 09/02/18 06:00 - Labs Result Diagrams: 09/02/18 06:45 09/02/18 06:45 Labs: Laboratory Results - last 24 hr 08/31/18 09/01/18 09/01/18 23:50 19:00 19:00 WBC RBC Hgb Hct MCV MCH MCHC RDW Plt Count MPV Sodium Potassium Chloride Carbon Dioxide Anion Gap BUN Creatinine Est GFR ( Amer) Est GFR (Non-Af Amer) Random Glucose Calcium Total Bilirubin AST ALT Alkaline Phosphatase Troponin I Total Protein Albumin Globulin Albumin/Globulin Ratio Procalcitonin 1.70 H Hepatitis A IgM Ab Negative Hep Bs Antigen Negative Hep B Core IgM Ab Negative Hepatitis C Antibody Negative HIV 1&2 Ag/Ab, 4th Gen Ur L.pneumophila Ag Negative 09/01/18 09/02/18 09/02/18 19:00 06:45 06:45 WBC 8.2 RBC 3.43 L Hgb 9.6 L Hct 30.1 L MCV 87.8 MCH 28.0 MCHC 31.9 RDW 14.5 Plt Count 155 MPV 10.9 Sodium 140 Potassium 3.9 Chloride 108 H Carbon Dioxide 25 Anion Gap 11 BUN 8 Creatinine 0.6 L Est GFR ( Amer) > 60 Est GFR (Non-Af Amer) > 60 Random Glucose 92 Calcium 9.0 Total Bilirubin 0.3 AST 69 H D ALT 86 H Alkaline Phosphatase 111 Troponin I < 0.01 Total Protein 6.6 Albumin 3.3 Globulin 3.3 Albumin/Globulin Ratio 1.0 L Procalcitonin Hepatitis A IgM Ab Hep Bs Antigen Hep B Core IgM Ab Hepatitis C Antibody HIV 1&2 Ag/Ab, 4th Gen Nonreactive Ur L.pneumophila Ag Attending/Attestation - Attestation I have personally seen and examined this patient.: Yes I have fully participated in the care of the patient.: Yes I have reviewed all pertinent clinical information: Yes
[2018-09-02] MEDS: Albuterol-Ipratrop 3 mg / 0.5 (3 ml) UD IH SCH ×2 (13:26→20:18)
[2018-09-02 13:35] LABS: HEPATITIS A IGM NEGATIVE (NEGATIVE)
[2018-09-02] MEDS: Budesonide 0.5 mg/2 ml Inhal Susp UD IH SCH (20:19)
[2018-09-03] MEDS: Albuterol-Ipratrop 3 mg / 0.5 (3 ml) UD IH SCH ×4 (01:58→20:57)
[2018-09-03] MEDS: Cefepime 1gm in NS 100ml 1 GM/100 ML BAG IVPB SCH ×3 (05:48→21:44)
[2018-09-03] MEDS: Pantoprazole 40 mg EC Tab PO SCH (05:48)
[2018-09-03 06:46] LABS: HEMOGLOBIN 9.5 g/dL (12.0-16.0); MEAN CELL VOLUME 87.6 fl (80.0-105.0); MEAN PLATELET VOLUME 10.4 fl (7.0-11.0); RBC 3.39 10^6/uL (3.5-6.1); RED CELL DISTRIBUTION WIDTH 14.7 % (11.5-14.5)
[2018-09-03 07:12] LABS: ALBUMIN 3.3 g/dL (3.0-4.8); ALT/SGPT 79 U/L (7-56); AST/SGOT 52 U/L (14-36); BLOOD UREA NITROGEN 9 mg/dL (7-21); CALCIUM 9.1 mg/dL (8.4-10.5); GFR NON-AFRICAN AMERICAN > 60
--- NOTE | 2018-09-03 07:27 | PN ---
DATE: 09/03/2018 PULMONARY PROGRESS NOTE SUBJECTIVE: The patient appears very comfortable this morning. She is not short of breath at rest. PHYSICAL EXAMINATION VITAL SIGNS: (Last noted in the computer); temperature is 98.4, pulse is 90, respirations 18, blood pressure 130/74. Oxygen saturation on room air - 98%. HEENT: Normocephalic, atraumatic. No JVD. CARDIOVASCULAR: Positive S1, S2. No S3 gallop. LUNGS: Crackles noted - right lower lobe. Much less/minimal rhonchi. No wheezing. EXTREMITIES: No clubbing, cyanosis or edema. Calves are nontender to palpation. GASTROINTESTINAL: Abdomen is soft, nontender and nondistended. Bowel sounds are positive. SKIN: No acute rash. NEUROLOGIC: Limited at the present time. IMPRESSION 1. Right upper lobe, right lower lobe pneumonia. 2. Acute bronchitis. 3. Multiple sclerosis. 4. Coronary artery disease. PLAN: The patient appears quite comfortable this morning. She is not short of breath at rest. She does state to feeling much better overall. On physical exam, there is certainly less bronchospasm noted. In addition, the oxygen saturation on room air is now 98%. I will continue with the current nebulizer treatments and inhaled steroids for now. I would continue with the antibiotic coverage as per Infectious Disease. I did discuss the case with Dr. Loja yesterday. There is no leukocytosis noted. The temperatures have fully resolved. Clinical status of the patient appears significantly improved - compared to the initial presentation. The patient is advised to be out of bed as much as possible today. I will discuss the above with Dr. Min. Simon Edouard MD [facility]
[2018-09-03] MEDS: Budesonide 0.5 mg/2 ml Inhal Susp UD IH SCH ×2 (07:37→20:57)
[2018-09-03] MEDS: Non Formulary Medication (Linaclotide [Linzess] 145 MCG) PO SCH (09:58)
[2018-09-03] MEDS: guaiFENesin-DM 600-30 mg ER Tab PO SCH ×2 (10:13→17:59)
[2018-09-03] MEDS: Vancomycin 1gm in NS 250ml 1 GM/250 ML BAG IVPB SCH (10:14)
--- NOTE | 2018-09-03 13:15 | PN ---
DATE: 09/03/2018 SUBJECTIVE: She is sitting up in bed this morning. She is feeling better. She is breathing a little bit better. She was on Zithromax Z-Mushtaq on the outpatient for bronchitis. Since 48 hours, she was much, much worse, has right pneumonia, now in the ER. MEDICATIONS: She is overnight on doxycycline, cefepime IV, vancomycin IV. She also has Xanax, Tylenol, Pulmicort, Protonix, Linzess, DuoNebs. PHYSICAL EXAMINATION: VITAL SIGNS: She has 98.7 temperature, 96 pulse, 130/76 blood pressure, 18 respiratory rate, 100% O2 sat on room air. HEAD: Atraumatic, normocephalic. HEART: Regular rate. LUNGS: Decreased breath sounds. Marked congestion but much better than yesterday, still a little bit left. She is breathing better, walking better, should be out of bed to chair all day. ABDOMEN: Soft. EXTREMITIES: No edema. LABORATORY DATA: She has 6 white count, 9.5 hemoglobin, 29.7 hematocrit, 170 platelets. Lactate 2.3. She has potassium of 3.9, sodium 140, BUN 9, creatinine 0.6, GFR is greater than 60, sugar is 99, calcium is 9.1. Total bili is 0.2, AST is 62, ALT is 79, alkaline phosphatase 107, better. Troponin I is less than 0.01. Total protein 6.8. Procalcitonin was high at 1.7. Negative for hepatitis. Negative for HIV. Negative for Influenza. Negative for pneumophila. ASSESSMENT AND PLAN: The patient has been seen by Pulmonary and Infectious Disease. She is here for failed outpatient antibiotics for bronchitis with now the right upper and right lower lobe pneumonia, acute bronchitis, multiple sclerosis, coronary artery disease. Continue aggressive treatment and care as per Pulmonary and Infectious Disease. I am hoping to discharge her tomorrow if things go well. Dion Min DO
--- NOTE | 2018-09-03 14:59 | CP.PCM.PN ---
<Dedrick Holder - Last Filed: 09/03/18 14:57> Subjective - Date & Time of Evaluation Date of Evaluation: 09/03/18 Time of Evaluation: 09:30 - Subjective Subjective: Dedrick Holder D.O. PGY-3, Internal Medicine Resident, Infectious Disease Progress Note 68 year old female with a PMH of hypertension, DVT, MS not on therapy for years, CAD s/p stent x2, who presented [place] [facility] for cough, congestion, and shortness of breath for 3 days ago. Infectious disease consultation was requested for pneumonia. Patient was seen and examined at bedside. Doing significantly better. States cough improved. No SOB. Objective - Vital Signs/Intake and Output Vital Signs (last 24 hours): Temp Pulse Resp BP Pulse Ox 98.2 F 82 19 116/77 100 09/03/18 12:00 09/03/18 12:00 09/03/18 12:00 09/03/18 12:00 09/03/18 06:00 Intake and Output: 09/03/18 09/03/18 06:59 18:59 Intake Total 690 Balance 690 - Medications Medications: Current Medications Acetaminophen (Tylenol 325mg Tab) 650 mg PO Q6H PRN PRN Reason: Fever >100.4 F Albuterol/Ipratropium (Duoneb 3 Mg/0.5 Mg (3 Ml) Ud) 3 ml IH [id number] [facility] Last Admin: 09/03/18 13:28 Dose: 3 ml Albuterol/Ipratropium (Duoneb 3 Mg/0.5 Mg (3 Ml) Ud) 3 ml IH Q2H PRN PRN Reason: Shortness of Breath Alprazolam (Xanax) 0.25 mg PO TID PRN; Protocol PRN Reason: Anxiety Stop: 09/08/18 18:12 Aspirin (Ecotrin) 81 mg PO DAILY [facility] Last Admin: 09/03/18 10:14 Dose: 81 mg Atorvastatin Calcium (Lipitor) 20 mg PO DAILY [facility] Last Admin: 09/03/18 10:13 Dose: 20 mg Budesonide (Pulmicort Respules) 0.5 mg IH [id number] [facility] Last Admin: 09/03/18 07:37 Dose: 0.5 mg Doxycycline Hyclate (Doryx) 100 mg PO Q12 [facility]; Protocol Last Admin: 09/03/18 10:17 Dose: Not Given Guaifenesin/Dextromethorphan (Mucinex-Dm 600-30 Mg) 1 tab PO BID [facility] Last Admin: 09/03/18 10:13 Dose: 1 tab Cefepime HCl (Maxipime 1gm) 1 gm in 100 mls @ 25 mls/hr IVPB Q8 [facility]; Protocol Stop: 09/10/18 22:01 Last Admin: 09/03/18 14:16 Dose: 25 mls/hr Vancomycin HCl (Vancomycin 1gm) 1 gm in 250 mls @ 167 mls/hr IVPB 0800,2000 [facility]; Protocol Stop: 09/10/18 20:01 Last Admin: 09/03/18 10:14 Dose: 167 mls/hr Non-Formulary Medication (Linaclotide [Linzess]) 145 mcg PO DAILY [facility] Last Admin: 09/03/18 09:58 Dose: Not Given Pantoprazole Sodium (Protonix Ec Tab) 40 mg PO 0600 [facility] Last Admin: 09/03/18 05:48 Dose: 40 mg - Labs Labs: 09/03/18 06:30 09/03/18 06:30 - Constitutional Appears: Non-toxic, No Acute Distress - Head Exam Head Exam: ATRAUMATIC, NORMOCEPHALIC - Eye Exam Eye Exam: EOMI. absent: Scleral icterus - ENT Exam ENT Exam: Mucous Membranes Moist - Neck Exam Neck exam: Positive for: Normal Inspection - Respiratory Exam Respiratory Exam: better air movement, no wheezes - Cardiovascular Exam Cardiovascular Exam: +S1, +S2. absent: Gallop, Rubs - GI/Abdominal Exam GI & Abdominal Exam: Normal Bowel Sounds, Soft. absent: Distended, Tenderness - Extremities Exam Extremities exam: Negative for: calf tenderness, pedal edema - Neurological Exam Neurological exam: Alert, Oriented x4 - Psychiatric Exam Psychiatric exam: Normal Affect, Normal Mood - Skin Skin Exam: Dry, Warm Assessment and Plan - Assessment and Plan (Free Text) Assessment: 68 year old female with a PMH of hypertension, DVT, MS not on therapy for years, CAD s/p stent x2, who presented [place] [facility] [place] cough, congestion, and shortness of breath for 3 days ago. Infectious disease consultation was requested for pn eumonia. Plan: Sepsis 2/2 HCAP MS GERD DVT HTN CAD s/p stent x2 Afebrile No leukocytosis Procal was elevated MRSA screen negative Blood cultures negative 2/ day 2 Discontinued vancomycin Continue doxy/cefe day [address] Edouard's note reviewed and appreciated We will follow with you Patient was seen and examined and case to be discussed with attending physician Thank you for the pleasure of participating in the care of this interesting patient <Jermain Loja - Last Filed: 09/03/18 16:41> Objective - Vital Signs/Intake and Output Vital Signs (last 24 hours): Temp Pulse Resp BP Pulse Ox 98.2 F 86 19 116/77 100 09/03/18 12:00 09/03/18 14:00 09/03/18 12:00 09/03/18 12:00 09/03/18 06:00 Intake and Output: 09/03/18 09/03/18 06:59 18:59 Intake Total 690 Balance 690 - Medications Medications: Current Medications Acetaminophen (Tylenol 325mg Tab) 650 mg PO Q6H PRN PRN Reason: Fever >100.4 F Albuterol/Ipratropium (Duoneb 3 Mg/0.5 Mg (3 Ml) Ud) 3 ml IH [id number] [facility] Last Admin: 09/03/18 13:28 Dose: 3 ml Albuterol/Ipratropium (Duoneb 3 Mg/0.5 Mg (3 Ml) Ud) 3 ml IH Q2H PRN PRN Reason: Shortness of Breath Alprazolam (Xanax) 0.25 mg PO TID PRN; Protocol PRN Reason: Anxiety Stop: 09/08/18 18:12 Aspirin (Ecotrin) 81 mg PO DAILY [facility] Last Admin: 09/03/18 10:14 Dose: 81 mg Atorvastatin Calcium (Lipitor) 20 mg PO DAILY [facility] Last Admin: 09/03/18 10:13 Dose: 20 mg Budesonide (Pulmicort Respules) 0.5 mg IH [id number] [facility] Last Admin: 09/03/18 07:37 Dose: 0.5 mg Doxycycline Hyclate (Doryx) 100 mg PO Q12 [facility]; Protocol Last Admin: 09/03/18 10:17 Dose: Not Given Guaifenesin/Dextromethorphan (Mucinex-Dm 600-30 Mg) 1 tab PO BID [facility] Last Admin: 04/05/19 10:13 Dose: 1 tab Cefepime HCl (Maxipime 1gm) 1 gm in 100 mls @ 25 mls/hr IVPB Q8 [facility]; Protocol Stop: 09/10/18 22:01 Last Admin: 09/03/18 14:16 Dose: 25 mls/hr Non-Formulary Medication (Linaclotide [Linzess]) 145 mcg PO DAILY [facility] Last Admin: 09/03/18 09:58 Dose: Not Given Pantoprazole Sodium (Protonix Ec Tab) 40 mg PO 0600 [facility] Last Admin: 09/03/18 05:48 Dose: 40 mg - Labs Labs: 09/03/18 06:30 09/03/18 06:30 Attending/Attestation - Attestation I have personally seen and examined this patient.: Yes I have fully participated in the care of the patient.: Yes I have reviewed all pertinent clinical information, including history, physical exam and plan: Yes
[2018-09-04] MEDS: Albuterol-Ipratrop 3 mg / 0.5 (3 ml) UD IH SCH ×4 (02:00→20:34)
[2018-09-04] MEDS: Cefepime 1gm in NS 100ml 1 GM/100 ML BAG IVPB SCH ×3 (05:10→21:34)
[2018-09-04 07:54] LABS: HEMOGLOBIN 9.5 g/dL (12.0-16.0); MEAN CELL VOLUME 87.7 fl (80.0-105.0); MEAN CORPUSCULAR HEMOGLOBIN 27.8 pg (25.0-35.0); MEAN CORPUSCULAR HGB CONC 31.7 g/dl (31.0-37.0); MEAN PLATELET VOLUME 10.5 fl (7.0-11.0); RBC 3.42 10^6/uL (3.5-6.1); RED CELL DISTRIBUTION WIDTH 14.5 % (11.5-14.5); WHITE BLOOD COUNT 6.4 10^3/uL (4.5-11.0)
[2018-09-04] MEDS: Budesonide 0.5 mg/2 ml Inhal Susp UD IH SCH ×2 (07:54→20:34)
[2018-09-04 08:14] LABS: ALBUMIN 3.4 g/dL (3.0-4.8); ALT/SGPT 52 U/L (7-56); AST/SGOT 33 U/L (14-36); BLOOD UREA NITROGEN 7 mg/dL (7-21); CALCIUM 9.1 mg/dL (8.4-10.5); GFR NON-AFRICAN AMERICAN > 60
[2018-09-04] MEDS: Pantoprazole 40 mg EC Tab PO SCH ×2 (08:30→10:54)
--- NOTE | 2018-09-04 08:35 | PN ---
DATE: 09/04/2018 SUBJECTIVE: The patient appears quite comfortable this morning. She is not short of breath at rest. PHYSICAL EXAMINATION: VITAL SIGNS (last noted in the computer): Temperature 98.8, pulse 88, respirations 18/20, blood pressure 129/74, oxygen saturation on room air is 98%. HEENT: Normocephalic, atraumatic. No JVD. CARDIOVASCULAR: Positive S1 and S2. No S3 gallop. LUNGS: Less crackles noted - right lower note. Much less/minimal rhonchi. No wheezing. EXTREMITIES: No clubbing, cyanosis or edema. Calves are nontender to palpation. GASTROINTESTINAL: Abdomen is soft, nontender and nondistended. Bowel sounds are positive. SKIN: No acute rash. NEUROLOGIC: Limited at the present time. IMPRESSION: 1. Right upper lobe, right lower lobe pneumonia. 2. Acute bronchitis. 3. Multiple sclerosis. 4. Coronary artery disease. PLAN: The patient appears quite comfortable this morning. She is not short of breath at rest. She does state to coughing "fits" at times. However, she does state to feeling much better overall. On physical exam, there is certainly less bronchospasm noted. In addition, there is no alveolar-arterial gradient. I will continue with the current nebulizer treatments and inhaled steroids for now. I would continue with the antibiotic coverage as per Infectious Disease. There is no leukocytosis. The temperatures have fully resolved. Repeat a.m. labs are pending. Clinical status of the patient is significantly improved overall. The patient is reminded to be out of bed as much as possible. I will discuss the above with Dr. Min. Simon Edouard MD [facility]
[2018-09-04] MEDS: guaiFENesin-DM 600-30 mg ER Tab PO SCH ×2 (10:52→18:00)
[2018-09-04] MEDS: Non Formulary Medication (Linaclotide [Linzess] 145 MCG) PO SCH (10:53)
--- NOTE | 2018-09-04 11:56 | CP.PCM.PN ---
Subjective - Date & Time of Evaluation Date of Evaluation: 09/04/18 Time of Evaluation: 10:00 - Subjective Subjective: Patient is still having cough but it is a little better, no fevers, no SOB at rest, no nausea. Objective - Vital Signs/Intake and Output Vital Signs (last 24 hours): Temp Pulse Resp BP Pulse Ox 98.8 F 83 20 132/75 100 09/04/18 06:00 09/04/18 06:00 09/04/18 06:00 09/04/18 06:00 09/03/18 06:00 Intake and Output: 09/04/18 09/04/18 06:59 18:59 Intake Total 300 Output Total 0 Balance 300 - Medications Medications: Current Medications Acetaminophen (Tylenol 325mg Tab) 650 mg PO Q6H PRN PRN Reason: Fever >100.4 F Albuterol/Ipratropium (Duoneb 3 Mg/0.5 Mg (3 Ml) Ud) 3 ml IH [id number] [facility] Last Admin: 09/04/18 07:54 Dose: 3 ml Albuterol/Ipratropium (Duoneb 3 Mg/0.5 Mg (3 Ml) Ud) 3 ml IH Q2H PRN PRN Reason: Shortness of Breath Alprazolam (Xanax) 0.25 mg PO TID PRN; Protocol PRN Reason: Anxiety Stop: 09/08/18 18:12 Aspirin (Ecotrin) 81 mg PO DAILY [facility] Last Admin: 09/03/18 10:14 Dose: 81 mg Atorvastatin Calcium (Lipitor) 20 mg PO DAILY [facility] Last Admin: 09/03/18 10:13 Dose: 20 mg Azithromycin (Zithromax) 250 mg PO DAILY [facility]; Protocol Stop: 09/08/18 17:31 Last Admin: 09/03/18 17:58 Dose: 250 mg Budesonide (Pulmicort Respules) 0.5 mg IH [id number] [facility] Last Admin: 09/04/18 07:54 Dose: 0.5 mg Guaifenesin/Dextromethorphan (Mucinex-Dm 600-30 Mg) 1 tab PO BID [facility] Last Admin: 09/03/18 17:59 Dose: 1 tab Cefepime HCl (Maxipime 1gm) 1 gm in 100 mls @ 25 mls/hr IVPB Q8 [facility]; Protocol Stop: 09/10/18 22:01 Last Admin: 09/04/18 05:10 Dose: 25 mls/hr Non-Formulary Medication (Linaclotide [Linzess]) 145 mcg PO DAILY [facility] Last Admin: 09/03/18 09:58 Dose: Not Given Pantoprazole Sodium (Protonix Ec Tab) 40 mg PO 0600 [facility] Last Admin: 09/04/18 08:30 Dose: Not Given - Labs Labs: 09/04/18 07:00 09/04/18 07:00 - Constitutional Appears: Chronically Ill - Head Exam Head Exam: NORMAL INSPECTION - ENT Exam ENT Exam: Mucous Membranes Moist - Neck Exam Neck Exam: absent: Meningismus - Respiratory Exam Respiratory Exam: Decreased Breath Sounds. absent: Rales - Cardiovascular Exam Cardiovascular Exam: +S1, +S2 - GI/Abdominal Exam GI & Abdominal Exam: Soft. absent: Tenderness Assessment and Plan - Assessment and Plan (Free Text) Plan: Assessment Sepsis due to HCAP multiple sclerosis GERD history of DVT HTN CAD S/P PCI Plan continue Doxycycline and Cefepime day 3 to complete 4-7 days continue to monitor clinically
--- NOTE | 2018-09-04 15:01 | PN ---
DATE: 09/04/2018 SUBJECTIVE: I saw her in her room sitting up in bed. She is alert. She tells me she is breathing a little bit better. She is still a little short of breath though. She is on lots of medications. She is on albuterol, Ecotrin, Linzess, Lipitor, cefepime IV, cough medicine, Pulmicort, Tylenol, Xanax, Zithromax. PHYSICAL EXAMINATION: VITAL SIGNS: She has a 98.8 temperature, 83 pulse, 132/75 blood pressure, 20 respiratory rate. HEENT: Head is atraumatic and normocephalic. HEART: Regular rate. LUNGS: Decreased breath sounds, better than the day before. Still a little bit of congestion. She does have a cough. ABDOMEN: Soft. EXTREMITIES: No edema. LABORATORY DATA: She has a 6.4 white count, 9.5 hemoglobin, 32 hematocrit with 205 platelets. She has a 140 sodium, potassium 4, BUN 7, creatinine 0.6. GFR is greater than 60, calcium 9.1. Total bilirubin is 0.3, AST is 33, ALT is 62, alkaline phosphatase 116, and troponin I is less than 0.01. Total protein is 6.8. Hepatitis, HIV, influenza, pneumophila are all negative. ASSESSMENT AND PLAN: She is being seen by Infectious Disease and Pulmonary in another day or so for her right upper and lower pneumonia. She also has multiple sclerosis. Dion Min DO
[2018-09-05 00:37] VITALS: RESP 20
[2018-09-05] MEDS: Albuterol-Ipratrop 3 mg / 0.5 (3 ml) UD IH SCH ×3 (01:31→13:29)
[2018-09-05] MEDS: Pantoprazole 40 mg EC Tab PO SCH (06:00)
[2018-09-05] MEDS: Cefepime 1gm in NS 100ml 1 GM/100 ML BAG IVPB SCH (06:00)
[2018-09-05 06:46] VITALS: BP 133/82; TEMP 98.7; O2SAT 98
[2018-09-05] MEDS: Budesonide 0.5 mg/2 ml Inhal Susp UD IH SCH (07:45)
[2018-09-05 07:57] LABS: HEMOGLOBIN 9.3 g/dL (12.0-16.0); MEAN CELL VOLUME 88.1 fl (80.0-105.0); MEAN CORPUSCULAR HEMOGLOBIN 27.7 pg (25.0-35.0); MEAN CORPUSCULAR HGB CONC 31.4 g/dl (31.0-37.0); MEAN PLATELET VOLUME 9.8 fl (7.0-11.0); RBC 3.36 10^6/uL (3.5-6.1); RED CELL DISTRIBUTION WIDTH 14.4 % (11.5-14.5)
--- NOTE | 2018-09-05 08:55 | PN ---
DATE: 09/05/2018 PULMONARY NOTE SUBJECTIVE: The patient appears very comfortable this morning. She is not short of breath at rest. PHYSICAL EXAMINATION VITAL SIGNS: Temperature is 98.4, pulse on the monitor is 88, respiratory rate 18 and blood pressure 118/70. Oxygen saturation on room air 97%-98%. HEENT: Normocephalic and atraumatic. No JVD. CARDIOVASCULAR: Positive S1 and S2. No S3 gallop. LUNGS: Less crackles noted - right lower lobe. No rhonchi or wheezing this morning. EXTREMITIES: No clubbing, cyanosis or edema. Calves are nontender to palpation. GASTROINTESTINAL: Abdomen is soft, nontender and nondistended. Bowel sounds are positive. SKIN: No acute rash. NEUROLOGIC: Limited at the present time. IMPRESSION: 1. Right upper lobe, right lower lobe pneumonia. 2. Acute bronchitis. 3. Multiple sclerosis. 4. Coronary artery disease. PLAN: The patient appears very comfortable this morning. She is not short of breath at rest. She states to much less cough. She states to feeling much, much better overall. She is asking to go home. On physical exam, her bronchospasm continues to resolve. In addition, the alveolar-arterial gradient also has resolved. Oxygen saturation on room air is now 97%-98%. I will continue the current nebulizer treatment and inhaled steroids for now. The patient remains on antibiotic therapy - as per Infectious Disease. Input from Dr. Dawson is noted. Clinical status of the patient is significantly improved. I will discuss the above with Dr. Min. Simon Edouard MD MTDD
[2018-09-05 08:58] LABS: ALB/GLOB RATIO 0.9 (1.1-1.8); ALBUMIN 3.2 g/dL (3.0-4.8); ALT/SGPT 41 U/L (7-56); AST/SGOT 31 U/L (14-36); BLOOD UREA NITROGEN 10 mg/dL (7-21); CALCIUM 9.1 mg/dL (8.4-10.5); GFR NON-AFRICAN AMERICAN > 60
[2018-09-05] MEDS: guaiFENesin-DM 600-30 mg ER Tab PO SCH (09:47)
--- NOTE | 2018-09-05 10:45 | CP.PCM.PN ---
Subjective - Date & Time of Evaluation Date of Evaluation: 09/05/18 Time of Evaluation: 10:35 - Subjective Subjective: No fevers, cough is getting better, appetite is better, no nausea, no diarrhea. Objective - Vital Signs/Intake and Output Vital Signs (last 24 hours): Temp Pulse Resp BP Pulse Ox 98.8 F 83 20 132/75 100 09/04/18 06:00 09/04/18 06:00 09/04/18 06:00 09/04/18 06:00 09/03/18 06:00 Intake and Output: 09/04/18 09/04/18 06:59 18:59 Intake Total 300 Output Total 0 Balance 300 - Medications Medications: Current Medications Acetaminophen (Tylenol 325mg Tab) 650 mg PO Q6H PRN PRN Reason: Fever >100.4 F Albuterol/Ipratropium (Duoneb 3 Mg/0.5 Mg (3 Ml) Ud) 3 ml IH [id number] [facility] Last Admin: 09/04/18 07:54 Dose: 3 ml Albuterol/Ipratropium (Duoneb 3 Mg/0.5 Mg (3 Ml) Ud) 3 ml IH Q2H PRN PRN Reason: Shortness of Breath Alprazolam (Xanax) 0.25 mg PO TID PRN; Protocol PRN Reason: Anxiety Stop: 09/08/18 18:12 Aspirin (Ecotrin) 81 mg PO DAILY [facility] Last Admin: 09/04/18 10:52 Dose: 81 mg Atorvastatin Calcium (Lipitor) 20 mg PO DAILY [facility] Last Admin: 09/04/18 10:52 Dose: 20 mg Azithromycin (Zithromax) 250 mg PO DAILY [facility]; Protocol Stop: 09/08/18 17:31 Last Admin: 09/04/18 10:52 Dose: 250 mg Budesonide (Pulmicort Respules) 0.5 mg IH [id number] [facility] Last Admin: 09/04/18 07:54 Dose: 0.5 mg Guaifenesin/Dextromethorphan (Mucinex-Dm 600-30 Mg) 1 tab PO BID [facility] Last Admin: 09/04/18 10:52 Dose: 1 tab Cefepime HCl (Maxipime 1gm) 1 gm in 100 mls @ 25 mls/hr IVPB Q8 [facility]; Protocol Stop: 09/10/18 22:01 Last Admin: 09/04/18 05:10 Dose: 25 mls/hr Non-Formulary Medication (Linaclotide [Linzess]) 145 mcg PO DAILY [facility] Last Admin: 09/04/18 10:53 Dose: Not Given Pantoprazole Sodium (Protonix Ec Tab) 40 mg PO 0600 [facility] Last Admin: 09/04/18 10:54 Dose: 40 mg - Labs Labs: 09/04/18 07:00 09/04/18 07:00 - Constitutional Appears: No Acute Distress, Chronically Ill - Head Exam Head Exam: NORMAL INSPECTION - Neck Exam Neck Exam: absent: Meningismus - Respiratory Exam Respiratory Exam: Decreased Breath Sounds - Cardiovascular Exam Cardiovascular Exam: +S1, +S2 - GI/Abdominal Exam GI & Abdominal Exam: Soft. absent: Tenderness Assessment and Plan - Assessment and Plan (Free Text) Plan: Assessment Sepsis due to HCAP, clinically improving multiple sclerosis GERD history of DVT HTN CAD S/P PCI Plan continue Doxycycline and Cefepime day 4 to complete 4-7 days and can switch to PO Vantin and Doxycycline to complete therapy when ready for discharge discussed with Dr. Min
[2018-09-05 11:03] VITALS: PULSE 95
--- NOTE | 2018-09-05 11:31 | DS ---
HISTORY OF PRESENT ILLNESS: I saw resting comfortably in bed. She had a good night last night. She is feeling well this morning. No cough, no congestion, no chest pain, no abdominal pain. She is eating well. She is walking well. She is doing much better. MEDICATIONS: She was on DuoNebs, , Lipitor, Maxipime, , Protonix Pulmicort, Tylenol, Xanax and Zithromax. PHYSICAL EXAMINATION: VITAL SIGNS: She has a 98.7 temperature, 91 pulse, 133/82 blood pressure, 20 respiratory rate, 90% O2 sat on room air. HEENT: Head is atraumatic, normocephalic. HEART: Regular rate. LUNGS: Decreased breath sounds, but clear to auscultation. No wheezes, rhonchi, or rales. ABDOMEN: Soft, nontender, positive bowel sounds. EXTREMITIES: No edema. LABORATORY DATA: She has a 5 white count, 9.3 hemoglobin, 29.6 hematocrit with a 227 platelets. Sodium 139, potassium 4.2, BUN is 10, creatinine 0.7, GFR is greater than 60, sugar is 93, calcium is 9.1, total bili is 0.4, AST 31, ALT is 41, alk phos 99, total protein is 6.7. ASSESSMENT AND PLAN: I discussed with pulmonary and Infectious Disease. She will be on doxycycline advancing for 5 days. We will see her in the office next week. She will continue with her regular meds. Pulmicort 1 puff twice a day. Dion Min DO MTDD
--- NOTE | 2018-09-07 06:57 | PQF ---
PROVIDER RESPONSE TEXT: Rt upper and lower pneumonia REVIEWER QUERY TEXT: Conflicting Documentation Clarification A single mention or documentation of multiple diagnoses for the same clinical presentation appears in the record. Please clarify the diagnosis/diagnoses. Please also document if the condition is: -- Confirmed and current -- Confirmed, treated and resolved -- Ruled out -- Other, please specify The patient's Clinical Indicators include: ID c consultant documents "sepsis due to HCAP" on consult of 09/02 and progress of 09/03, 09/04, and 09/05. Do you agree, disagree, undetermined, other with systemic sepsis for this patient? Thank you. Query created by: Neema Ross on 09/06/2018 4:16 PM Electronically signed by: Dion Min DO 09/07/2018 6:54 AM
== END 2018-09-05 13:52 | disposition home or self-care (01) | DRG 195 ==
LOC: ED 11:49 → ERH 15:21 → 2RSO 18:46
PROVIDERS: ADMIT Family Medicine; ATTEND Family Medicine
DX: J18.1 Lobar pneumonia, unspecified organism (principal); G35 Multiple sclerosis; I10 Essential (primary) hypertension; Z79.82 Long term (current) use of aspirin; Z79.899 Other long term (current) drug therapy; Z95.5 Presence of coronary angioplasty implant and graft; K21.9 Gastro-esophageal reflux disease without esophagitis; J20.9 Acute bronchitis, unspecified; I25.10 Atherosclerotic heart disease of native coronary artery without angina pectoris; I25.2 Old myocardial infarction; I48.91 Unspecified atrial fibrillation; Z87.09 Personal history of other diseases of the respiratory system; M43.6 Torticollis; Y95 Nosocomial condition; Z86.718 Personal history of other venous thrombosis and embolism; Z87.892 Personal history of anaphylaxis; Z91.013 Allergy to seafood; E78.00 Pure hypercholesterolemia, unspecified; K59.00 Constipation, unspecified; Z98.42 Cataract extraction status, left eye